=== PATIENT | male | born 1965 | race Caucasian/White ===

== ENCOUNTER → 2016-07-19 | Outpatient (CLI) | payer MEDICAID ==
[2016-07-19 10:33] LABS: MEAN CORPUSCULAR HEMOGLOBIN 30.1 pg (27.0-33.0); RED CELL DISTRIBUTION WIDTH 14.3 % (11.5-14.5); WHITE BLOOD COUNT 7.3 K/mm3 (4.0-10.0)
[2016-07-19 11:08] LABS: CORTISOL AM 7.3 UG/DL (4.3-22.4)
[2016-07-19 11:11] LABS: ALBUMIN 4.3 GM/DL (3.2-5.2); ALBUMIN/GLOBULIN RATIO 1.59 (1.00-1.93); BILIRUBIN,TOTAL 0.3 MG/DL (0.2-1.0); CALCIUM LEVEL 9.2 MG/DL (8.5-10.1); CREATININE FOR GFR 1.58 MG/DL (0.70-1.30); GLOMERULAR FILTRATION RATE 49.5 (>56); POTASSIUM SERUM 4.5 MEQ/L (3.5-5.1)
== END ==
LOC: M LAB 09:35
PROVIDERS: ATTEND Nurse Practitioner Family
DX: R61 Generalized hyperhidrosis (principal)

== ENCOUNTER → 2017-03-15 | Outpatient (REF) | payer MEDICAID, OTHER ==
[2017-03-15 19:53] LABS: ALBUMIN 4.7 GM/DL (3.2-5.2); ALBUMIN/GLOBULIN RATIO 1.52 (1.00-1.93); BILIRUBIN,TOTAL 0.2 MG/DL (0.2-1.0); CALCIUM LEVEL 9.3 MG/DL (8.5-10.1); CREATININE FOR GFR 1.93 MG/DL (0.70-1.30); GLOMERULAR FILTRATION RATE 39.1 (>56); POTASSIUM SERUM 3.9 MEQ/L (3.5-5.1); TOTAL PROTEIN 7.8 GM/DL (6.4-8.2)
[2017-03-15 20:17] LABS: MEAN CORPUSCULAR HEMOGLOBIN 31.1 pg (27.0-33.0); MEAN CORPUSCULAR HGB CONC 32.7 g/dl (32.0-36.5); RED CELL DISTRIBUTION WIDTH 12.9 % (11.5-14.5); WHITE BLOOD COUNT 8.1 K/mm3 (4.0-10.0)
== END ==
LOC: M LAB REF 13:10
PROVIDERS: ATTEND Nurse Practitioner Family
DX: E78.5 Hyperlipidemia, unspecified (principal); E55.9 Vitamin D deficiency, unspecified; J44.9 Chronic obstructive pulmonary disease, unspecified; Z12.5 Encounter for screening for malignant neoplasm of prostate; N28.9 Disorder of kidney and ureter, unspecified; F32.9 Major depressive disorder, single episode, unspecified

== ENCOUNTER → 2017-07-10 | Outpatient (REF) | payer OTHER, MEDICAID ==
[2017-07-10 13:33] LABS: BASO # 0.1 10^3/uL (0.0-0.2); BASO % 0.8 % (0.0-1.0); EOS # 0.2 10^3/uL (0.0-0.50); EOS % 2.9 % (0.0-3.0); HEMATOCRIT 37.2 % (42.0-52.0); IMMATURE GRANULOCYTE % 0.3 % (0-0); LYMPH # 2.6 10^3/uL (1.5-4.5); LYMPH % 35.2 % (24.0-44.0); MEAN CORPUSCULAR HEMOGLOBIN 29.8 pg (27.0-33.0); MEAN CORPUSCULAR HGB CONC 32.3 g/dl (32.0-36.5); MEAN CORPUSCULAR VOLUME 92.3 fl (80.0-96.0); MONO # 0.7 10^3/uL (0.0-0.8); MONO % 8.7 % (0.0-5.0); NEUTROPHILS # 3.9 10^3/uL (1.8-7.7); NEUTROPHILS % 52.1 % (36.0-66.0); PLATELET COUNT, AUTOMATED 331 10^3/uL (150-450); RED BLOOD COUNT 4.03 10^6/uL (4.30-6.10); RED CELL DISTRIBUTION WIDTH 12.9 % (11.5-14.5); WHITE BLOOD COUNT 7.5 10^3/uL (4.0-10.0)
[2017-07-10 13:35] LABS: ALBUMIN 4.6 GM/DL (3.2-5.2); ALBUMIN/GLOBULIN RATIO 1.44 (1.00-1.93); ALKALINE PHOSPHATASE 93 U/L (45-117); ALT/SGPT 20 U/L (12-78); ANION GAP 6 MEQ/L (8-16); AST/SGOT 17 U/L (7-37); BILIRUBIN,TOTAL 0.2 MG/DL (0.2-1.0); BLOOD UREA NITROGEN 32 MG/DL (7-18); CARBON DIOXIDE LEVEL 28 MEQ/L (21-32); CHLORIDE LEVEL 107 MEQ/L (98-107); CHOLESTEROL LEVEL 159 MG/DL (<200); CHOLESTEROL RISK RATIO 3.785 (<5); CREATININE FOR GFR 1.55 MG/DL (0.70-1.30); GLOMERULAR FILTRATION RATE 50.4 (>56); GLUCOSE, FASTING 118 MG/DL (70-105); HDL CHOLESTEROL 42 MG/DL (>40); IRON (FE) 96 UG/DL (65-175); LDL CHOLESTEROL 85.2 MG/DL (<100); NON-HDL-C 117 MG/DL; POTASSIUM SERUM 4.2 MEQ/L (3.5-5.1); SODIUM LEVEL 141 MEQ/L (136-145); TOTAL PROTEIN 7.8 GM/DL (6.4-8.2); TRIGLYCERIDES LEVEL 159 MG/DL (<150)
[2017-07-10 15:03] LABS: ESTIMATED AVERAGE GLUCOSE 126 MG/DL (60-110)
== END ==
LOC: M LAB REF 12:18
DX: I10 Essential (primary) hypertension (principal)
CPT/HCPCS: 83540

== ENCOUNTER 2018-03-26 16:38 | Emergency (ER) | payer OTHER, MEDICAID | END 2018-03-26 19:02 | disposition home or self-care (01) | LOC: M ED 16:38 | DX: M71.21 Synovial cyst of popliteal space [Baker], right knee (principal); I10 Essential (primary) hypertension; G89.29 Other chronic pain; M54.9 Dorsalgia, unspecified; E78.00 Pure hypercholesterolemia, unspecified; K21.9 Gastro-esophageal reflux disease without esophagitis; F41.9 Anxiety disorder, unspecified; F19.10 Other psychoactive substance abuse, uncomplicated; Z79.82 Long term (current) use of aspirin; Z79.899 Other long term (current) drug therapy | CPT/HCPCS: 93971 ==

== ENCOUNTER → 2018-05-05 | Outpatient (CLI) | payer SELFPAY, OTHER ==
[2018-05-05 15:01] LABS: HEMATOCRIT 36.1 % (42.0-52.0); HEMOGLOBIN 12.2 g/dl (13.5-17.5); MEAN CORPUSCULAR HEMOGLOBIN 31.3 pg (27.0-33.0); MEAN CORPUSCULAR HGB CONC 33.8 g/dl (32.0-36.5); MEAN CORPUSCULAR VOLUME 92.6 fl (80.0-96.0); PLATELET COUNT, AUTOMATED 310 10^3/uL (150-450); RED CELL DISTRIBUTION WIDTH 13.2 % (11.5-14.5); WHITE BLOOD COUNT 8.4 10^3/uL (4.0-10.0)
[2018-05-05 15:29] LABS: ALBUMIN 3.9 GM/DL (3.2-5.2); ALBUMIN/GLOBULIN RATIO 1.18 (1.00-1.93); ALKALINE PHOSPHATASE 124 U/L (45-117); ALT/SGPT 32 U/L (12-78); ANION GAP 3 MEQ/L (8-16); AST/SGOT 19 U/L (7-37); BILIRUBIN,TOTAL 0.2 MG/DL (0.2-1.0); BLOOD UREA NITROGEN 25 MG/DL (7-18); CALCIUM LEVEL 8.9 MG/DL (8.5-10.1); CARBON DIOXIDE LEVEL 36 MEQ/L (21-32); CHLORIDE LEVEL 104 MEQ/L (98-107); CREATININE FOR GFR 1.18 MG/DL (0.70-1.30); GLOMERULAR FILTRATION RATE > 60.0 (>56); GLUCOSE, FASTING 129 MG/DL (70-100); POTASSIUM SERUM 3.8 MEQ/L (3.5-5.1); SODIUM LEVEL 143 MEQ/L (136-145); TOTAL PROTEIN 7.2 GM/DL (6.4-8.2)
[2018-05-05 17:02] LABS: CHLAMYDIA DNA AMPLIFICATION NEGATIVE (NEGATIVE); GC DNA AMPLIFICATION NEGATIVE (NEGATIVE)
[2018-05-07 10:53] LABS: HEPATITIS B SURFACE ANTIGEN NEGATIVE (NEGATIVE)
[2018-05-07 11:22] LABS: HIV 1&2 SCREEN CENTAUR NEGATIVE (NEGATIVE)
== END ==
LOC: M LAB 14:28
DX: F11.21 Opioid dependence, in remission (principal); R94.31 Abnormal electrocardiogram [ECG] [EKG]
CPT/HCPCS: 93005

== ENCOUNTER 2018-06-20 10:58 | Emergency (ER) | payer MEDICAID, OTHER ==
[~2018-06-20] VITALS: Ht 177.8 cm; Wt 97.7 kg
[~2018-06-20 10:58] MED LIST: AMLO10TA4; ATOR80TA59; DULO1CAP2; DULO1CAP3; IBUP-1022 PO; METH10CO PO; OMEP20CA3; SM A1TAB
[2018-06-20 11:24] LABS: BASO # 0.1 10^3/uL (0.0-0.2); BASO % 0.5 % (0.0-1.0); EOS # 0.3 10^3/uL (0.0-0.50); EOS % 3.4 % (0.0-3.0); HEMATOCRIT 37.4 % (42.0-52.0); HEMOGLOBIN 12.4 g/dl (13.5-17.5); LYMPH # 2.4 10^3/uL (1.5-4.5); LYMPH % 25.5 % (24.0-44.0); MEAN CORPUSCULAR HEMOGLOBIN 30.7 pg (27.0-33.0); MEAN CORPUSCULAR HGB CONC 33.2 g/dl (32.0-36.5); MEAN CORPUSCULAR VOLUME 92.6 fl (80.0-96.0); MONO # 0.9 10^3/uL (0.0-0.8); MONO % 9.1 % (0.0-5.0); NEUTROPHILS # 5.8 10^3/uL (1.8-7.7); NEUTROPHILS % 61.1 % (36.0-66.0); PLATELET COUNT, AUTOMATED 305 10^3/uL (150-450); RED BLOOD COUNT 4.04 10^6/uL (4.30-6.10); WHITE BLOOD COUNT 9.6 10^3/uL (4.0-10.0)
[2018-06-20 12:06] LABS: BLOOD UREA NITROGEN 20 MG/DL (7-18); CALCIUM LEVEL 8.6 MG/DL (8.5-10.1); CARBON DIOXIDE LEVEL 30 MEQ/L (21-32); CHLORIDE LEVEL 103 MEQ/L (98-107); CREATININE FOR GFR 1.12 MG/DL (0.70-1.30); GLOMERULAR FILTRATION RATE > 60.0 (>56); GLUCOSE, FASTING 170 MG/DL (70-100); POTASSIUM SERUM 3.8 MEQ/L (3.5-5.1); SODIUM LEVEL 140 MEQ/L (136-145)
[2018-06-20] MEDS ORDERED: ISOVUE-370 76% 100ML VIAL (Q9967) As Ordered ONE (12:17)
--- NOTE | 2018-06-20 13:42 | REP ---
CT NECK WITH CONTRAST: HISTORY: Right submandibular swelling. CONTRAST: Isovue 370, 75 mL. The naso-, jeb-, and hypopharynx, larynx and subglottic trachea are normal in appearance. There is mild enlargement of the right submandibular gland. There is mild homogeneous enhancement with contrast. Increased density is present in the surrounding subcutaneous tissue. There is thickening of the right platysma muscle. These findings are consistent with sialoadenitis. The parotid , left submandibular and thyroid glands are normal in size and density. An enlarged lymph node 1.3 cm in width is present in the right internal jugular chain at the level of the jeb- and hypopharynx. Small lymph nodes less than 1 cm in size are present in the left internal jugular chain, posterior triangles, submandibular and submental areas. Minimal degenerative change is present in the spine. The lung apices are clear. Minimal mucosal thickening is present in the ethmoid and right maxillary sinuses. IMPRESSION: The above findings are consistent with right submandibular sialoadenitis. Electronically Signed by Vic Sewell MD 06/20/2018 01:53 P
[2018-06-20] MEDS ORDERED: IBUP-1022 PO (13:57)
[2018-06-20] MEDS ORDERED: PENI500T PO (13:57)
[2018-06-20 14:02] VITALS: BP 146/76
== END 2018-06-20 14:05 | disposition home or self-care (01) ==
LOC: M ED 10:58
DX: K04.7 Periapical abscess without sinus (principal); K11.20 Sialoadenitis, unspecified; K11.8 Other diseases of salivary glands; I10 Essential (primary) hypertension; F19.10 Other psychoactive substance abuse, uncomplicated; Z72.0 Tobacco use; Z79.82 Long term (current) use of aspirin; Z79.899 Other long term (current) drug therapy
CPT/HCPCS: 70491; 80048; 85025; 99284; Q9967

== ENCOUNTER → 2018-07-24 | Outpatient (REF) | payer OTHER ==
[~2018-07-24] MED LIST changes: -AMLO10TA4; +AMLO10TA5; +PENI500T PO
[2018-07-24 17:02] LABS: BASO # 0.1 10^3/uL (0.0-0.2); BASO % 0.6 % (0.0-1.0); EOS # 0.3 10^3/uL (0.0-0.50); EOS % 3.7 % (0.0-3.0); HEMATOCRIT 36.5 % (42.0-52.0); HEMOGLOBIN 12.5 g/dl (13.5-17.5); LYMPH # 3.1 10^3/uL (1.5-4.5); LYMPH % 37.6 % (24.0-44.0); MEAN CORPUSCULAR HEMOGLOBIN 30.6 pg (27.0-33.0); MEAN CORPUSCULAR HGB CONC 34.2 g/dl (32.0-36.5); MEAN CORPUSCULAR VOLUME 89.5 fl (80.0-96.0); MONO # 0.6 10^3/uL (0.0-0.8); MONO % 7.5 % (0.0-5.0); NEUTROPHILS # 4.1 10^3/uL (1.8-7.7); NEUTROPHILS % 50.5 % (36.0-66.0); PLATELET COUNT, AUTOMATED 306 10^3/uL (150-450); RED BLOOD COUNT 4.08 10^6/uL (4.30-6.10); WHITE BLOOD COUNT 8.2 10^3/uL (4.0-10.0)
[2018-07-24 17:13] LABS: ALBUMIN 3.8 GM/DL (3.2-5.2); BILIRUBIN,TOTAL 0.2 MG/DL (0.2-1.0); CALCIUM LEVEL 8.7 MG/DL (8.5-10.1); CREATININE FOR GFR 1.41 MG/DL (0.70-1.30); POTASSIUM SERUM 3.7 MEQ/L (3.5-5.1); THYROID STIMULATING HORMONE 1.14 uIU/ML (0.358-3.740); TOTAL PROTEIN 7.5 GM/DL (6.4-8.2)
== END ==
LOC: M LAB REF 16:25
PROVIDERS: ATTEND Nurse Practitioner Adult Health
DX: N28.9 Disorder of kidney and ureter, unspecified (principal); E55.9 Vitamin D deficiency, unspecified; I10 Essential (primary) hypertension; D64.9 Anemia, unspecified

== ENCOUNTER 2018-09-04 01:24 | Emergency (ER) | payer OTHER ==
[~2018-09-04] VITALS: Ht 180.3 cm; Wt 95.5 kg
[2018-09-04] MEDS ORDERED: MORPHINE 4 MG/ML 1ML VIAL/SYRINGE (J2270) IV PRN (02:30)
[2018-09-04] MEDS ORDERED: KETOROLAC 30 MG/ML VIAL (J1885) IV ONE (02:30)
[2018-09-04] MEDS ORDERED: ONDANSETRON 4MG/2ML VIAL (J2405) IV ONE (02:30)
[2018-09-04] MEDS ORDERED: IBUP80TA PO (04:03)
[2018-09-04 04:05] VITALS: BP 166/88
--- NOTE | 2018-09-04 06:57 | REP ---
Clinical: Trauma/injury. Technique: AP, lateral, and bilateral oblique views of the right knee. Findings: Early advanced tricompartmental osteoarthritic degenerative changes are appreciated. There is no evidence for acute fracture or dislocation. No definite effusion. Impression: Tricompartmental osteoarthritic degenerative changes. No acute fracture or dislocation appreciated. Electronically Signed by Phoenix Marrero MD 09/04/2018 06:49 A
== END 2018-09-04 04:17 | disposition home or self-care (01) ==
LOC: M ED 01:24
DX: M79.661 Pain in right lower leg (principal); W19.XXXA Unspecified fall, initial encounter; Y92.099 Unspecified place in other non-institutional residence as the place of occurrence of the external cause; Y93.9 Activity, unspecified; Y99.9 Unspecified external cause status; M17.11 Unilateral primary osteoarthritis, right knee; F19.10 Other psychoactive substance abuse, uncomplicated; Z79.82 Long term (current) use of aspirin; Z79.899 Other long term (current) drug therapy
CPT/HCPCS: 73564; 96374; 96375; 99284; J1885; J2270; J2405

== ENCOUNTER → 2019-01-08 | Outpatient (REF) | payer OTHER ==
[~2019-01-08] MED LIST changes: +ASPI-164; -DULO1CAP2; -DULO1CAP3; +DULO1CAP5; +DULO1CAP6; +IBUP80TA PO; -OMEP20CA3; +OMEP20CA4; -SM A1TAB
[2019-01-08 18:47] LABS: BASO # 0.1 10^3/uL (0.0-0.2); BASO % 0.7 % (0.0-1.0); EOS # 0.1 10^3/uL (0.0-0.50); HEMATOCRIT 31.8 % (42.0-52.0); HEMOGLOBIN 10.6 g/dl (13.5-17.5); LYMPH # 3.1 10^3/uL (1.5-4.5); LYMPH % 28.2 % (24.0-44.0); MEAN CORPUSCULAR HEMOGLOBIN 30.7 pg (27.0-33.0); MEAN CORPUSCULAR HGB CONC 33.3 g/dl (32.0-36.5); MEAN CORPUSCULAR VOLUME 92.2 fl (80.0-96.0); MONO # 0.8 10^3/uL (0.0-0.8); MONO % 7.4 % (0.0-5.0); NEUTROPHILS # 6.9 10^3/uL (1.8-7.7); NEUTROPHILS % 62.3 % (36.0-66.0); PLATELET COUNT, AUTOMATED 363 10^3/uL (150-450); RED BLOOD COUNT 3.45 10^6/uL (4.30-6.10); WHITE BLOOD COUNT 11.1 10^3/uL (4.0-10.0)
[2019-01-08 18:48] LABS: ALBUMIN 4.1 GM/DL (3.2-5.2); BILIRUBIN,TOTAL 0.2 MG/DL (0.2-1.0); CALCIUM LEVEL 8.8 MG/DL (8.5-10.1); CREATININE FOR GFR 1.56 MG/DL (0.70-1.30); GLOMERULAR FILTRATION RATE 49.6 (>56); POTASSIUM SERUM 3.6 MEQ/L (3.5-5.1); TOTAL PROTEIN 7.4 GM/DL (6.4-8.2)
[2019-01-08 19:33] LABS: HEMOGLOBIN A1c 6.2 %
== END ==
LOC: M LAB REF 17:02
PROVIDERS: ATTEND Nurse Practitioner Adult Health
DX: N28.9 Disorder of kidney and ureter, unspecified (principal); D64.9 Anemia, unspecified; I10 Essential (primary) hypertension; K76.9 Liver disease, unspecified

== ENCOUNTER 2019-04-13 07:32 | Emergency (ER) | payer OTHER ==
[~2019-04-13] VITALS: Ht 180.3 cm; Wt 81.8 kg
[2019-04-13] MEDS ORDERED: ASPI81TA26 (07:51)
[2019-04-13] MEDS ORDERED: VENL150C43 (07:51)
[2019-04-13] MEDS ORDERED: SILD50TA8 (07:51)
[2019-04-13] MEDS ORDERED: BUSP15TA47 (07:51)
[2019-04-13] MEDS ORDERED: NAPR-885 PO (08:51)
[2019-04-13 08:58] VITALS: BP 161/87
--- NOTE | 2019-04-13 09:02 | REP ---
REASON: Persistent pain after trauma 2 months ago. There is a fracture of the anterior 7th rib. There is associated callous formation consistent with healing. The accompany frontal view of the chest is normal. IMPRESSION: Left anterior 7th rib fracture. Electronically Signed by Jacques Palmer DO 04/13/2019 09:07 A
== END 2019-04-13 09:03 | disposition home or self-care (01) ==
LOC: M ED 07:32
DX: S22.32XA Fracture of one rib, left side, initial encounter for closed fracture (principal); Y04.0XXA Assault by unarmed brawl or fight, initial encounter; Y92.9 Unspecified place or not applicable; I10 Essential (primary) hypertension; F17.210 Nicotine dependence, cigarettes, uncomplicated; Z79.891 Long term (current) use of opiate analgesic; Z79.82 Long term (current) use of aspirin; Z79.899 Other long term (current) drug therapy

== ENCOUNTER → 2019-06-05 | Outpatient (CLI) | payer OTHER, SELFPAY ==
[~2019-06-05] MED LIST changes: +ASPI81TA26; +BUSP15TA47; +NAPR-885 PO; +SILD50TA8; +VENL150C43
[2019-06-05 11:27] LABS: BASO # 0.1 10^3/uL (0.0-0.2); EOS # 0.4 10^3/uL (0.0-0.5); EOS % 3.4 % (0.0-3.0); HEMATOCRIT 38.7 % (42.0-52.0); HEMOGLOBIN 12.4 g/dl (13.5-17.5); LYMPH # 3.2 10^3/uL (1.5-5.0); LYMPH % 28.5 % (24.0-44.0); MEAN CORPUSCULAR HEMOGLOBIN 30.2 pg (27.0-33.0); MEAN CORPUSCULAR VOLUME 94.2 fl (80.0-96.0); MONO # 0.9 10^3/uL (0.0-0.8); MONO % 8.3 % (0.0-5.0); NEUTROPHILS # 6.6 10^3/uL (1.5-8.5); NEUTROPHILS % 58.4 % (36.0-66.0); PLATELET COUNT, AUTOMATED 334 10^3/uL (150-450); RED BLOOD COUNT 4.11 10^6/uL (4.30-6.10); WHITE BLOOD COUNT 11.4 10^3/uL (4.0-10.0)
[2019-06-05 11:49] LABS: ALBUMIN 3.9 GM/DL (3.2-5.2); BILIRUBIN,TOTAL 0.2 MG/DL (0.2-1.0); CREATININE FOR GFR 1.38 MG/DL (0.70-1.30); GLOMERULAR FILTRATION RATE 57.2 (>56); POTASSIUM SERUM 4.3 MEQ/L (3.5-5.1); TOTAL PROTEIN 7.2 GM/DL (6.4-8.2)
[2019-06-05 11:57] LABS: FOLATE 4.2 NG/ML
== END ==
LOC: M LAB 09:15
PROVIDERS: ATTEND Nurse Practitioner Adult Health
DX: D64.9 Anemia, unspecified (principal)

== ENCOUNTER → 2019-06-05 | Outpatient (CLI) | payer OTHER, SELFPAY ==
[2019-06-05 11:22] LABS: HEMATOCRIT 38.4 % (42.0-52.0); HEMOGLOBIN 12.5 g/dl (13.5-17.5); MEAN CORPUSCULAR HEMOGLOBIN 30.6 pg (27.0-33.0); MEAN CORPUSCULAR HGB CONC 32.6 g/dl (32.0-36.5); MEAN CORPUSCULAR VOLUME 93.9 fl (80.0-96.0); PLATELET COUNT, AUTOMATED 328 10^3/uL (150-450); RED BLOOD COUNT 4.09 10^6/uL (4.30-6.10); WHITE BLOOD COUNT 11.5 10^3/uL (4.0-10.0)
[2019-06-05 12:17] LABS: ALBUMIN 4.1 GM/DL (3.2-5.2); ALT/SGPT 26 U/L (12-78); BILIRUBIN,TOTAL 0.2 MG/DL (0.2-1.0); BLOOD UREA NITROGEN 31 MG/DL (7-18); CARBON DIOXIDE LEVEL 31 MEQ/L (21-32); CHLORIDE LEVEL 104 MEQ/L (98-107); CREATININE FOR GFR 1.42 MG/DL (0.70-1.30); GLOMERULAR FILTRATION RATE 55.3 (>56); GLUCOSE, FASTING 85 MG/DL (70-100); POTASSIUM SERUM 4.4 MEQ/L (3.5-5.1); SODIUM LEVEL 139 MEQ/L (136-145); TOTAL PROTEIN 7.3 GM/DL (6.4-8.2)
[2019-06-05 12:38] LABS: HEPATITIS B SURFACE ANTIGEN NEGATIVE (NEGATIVE)
[2019-06-05 12:39] LABS: CHLAMYDIA DNA AMPLIFICATION NEGATIVE (NEGATIVE); GC DNA AMPLIFICATION NEGATIVE (NEGATIVE)
[2019-06-05 13:06] LABS: HEPATITIS C VIRUS ABY INDEX 0.1 INDEX (<0.8); HIV 1&2 SCREEN CENTAUR NEGATIVE (NEGATIVE)
--- NOTE | 2019-06-06 07:59 | ECGEPIP ---
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
== END ==
LOC: M LAB 09:09
PROVIDERS: ATTEND Family Medicine
DX: F11.20 Opioid dependence, uncomplicated (principal)

== ENCOUNTER 2019-08-08 17:14 | Emergency (ER) | payer MEDICAID, OTHER ==
[~2019-08-08] VITALS: Ht 180.3 cm; Wt 84.3 kg
[~2019-08-08 17:14] MED LIST changes: +OMEP1CAP73; -OMEP20CA4
[2019-08-08 18:11] LABS: INFLUENZA A AMPLIFICATION POSITIVE (NEGATIVE); INFLUENZA B AMPLIFICATION NEGATIVE (NEGATIVE)
--- NOTE | 2019-08-08 18:11 | REP ---
PA and lateral chest: Comparisons are 05/30/2069 and 04/13/2019. The study is somewhat underpenetrated. Sign taking this into consideration galarza are clear. Cardiac size is normal. The zoran, mediastinum, skeletal structures are unremarkable. There is no change from the prior study. Impression: Under penetrated study. No interval change. Electronically Signed by Ovidio Waite MD 08/08/2019 06:03 P
[2019-08-08] MEDS ORDERED: ACETAMINOPHEN 325 MG TAB PO ONE (18:30)
[2019-08-08] MEDS ORDERED: IBUPROFEN 600 MG TAB PO ONE (18:30)
[2019-08-08] MEDS ORDERED: IPRATROPIUM 0.5MG/ALBUTEROL 2.5MG INH SOL UD 3ML (DUONEB)(J7620) NEB ONE (19:30)
[2019-08-08 21:09] VITALS: BP 128/59
== END 2019-08-08 21:44 | disposition home or self-care (01) ==
LOC: M ED 17:14
DX: J09.X9 Influenza due to identified novel influenza A virus with other manifestations (principal); K21.9 Gastro-esophageal reflux disease without esophagitis; F17.210 Nicotine dependence, cigarettes, uncomplicated; Z79.899 Other long term (current) drug therapy; Z79.82 Long term (current) use of aspirin

== ENCOUNTER 2019-08-14 20:23 | Inpatient (IN) | payer OTHER ==
[~2019-08-14] VITALS: Ht 180.3 cm; Wt 84.1 kg
[2019-08-14] MEDS ORDERED: GI COCKTAIL 50ML BTL(HYOSCYAMINE/MAALOX/LIDOCAINE VISCOUS)(1:3:1) PO ONE (22:45)
[2019-08-14] MEDS ORDERED: NITROGLYCERIN 0.4 MG SUBL TABLET SL PRN (23:00)
[2019-08-14] MEDS ORDERED: ASPIRIN 81 MG CHEW TABLET PO ONE (23:00)
[2019-08-14 23:21] LABS: BASO % 0.3 % (0.0-1.0); EOS # 0.1 10^3/uL (0.0-0.5); EOS % 0.4 % (0.0-3.0); HEMATOCRIT 34.7 % (42.0-52.0); HEMOGLOBIN 11.4 g/dl (13.5-17.5); LYMPH # 2.3 10^3/uL (1.5-5.0); LYMPH % 16.1 % (24.0-44.0); MEAN CORPUSCULAR HEMOGLOBIN 30.1 pg (27.0-33.0); MEAN CORPUSCULAR HGB CONC 32.9 g/dl (32.0-36.5); MEAN CORPUSCULAR VOLUME 91.6 fl (80.0-96.0); MONO % 7.2 % (0.0-5.0); NEUTROPHILS # 10.6 10^3/uL (1.5-8.5); NEUTROPHILS % 75.1 % (36.0-66.0); PLATELET COUNT, AUTOMATED 488 10^3/uL (150-450); RED BLOOD COUNT 3.79 10^6/uL (4.30-6.10); WHITE BLOOD COUNT 14.1 10^3/uL (4.0-10.0)
[2019-08-14 23:48] LABS: PARTIAL THROMBOPLASTIN TIME 31.1 SECONDS (25.0-38.4)
[2019-08-14 23:52] LABS: INR 1.18; PROTHROMBIN TIME 14.7 SECONDS (11.8-14.0)
[2019-08-14 23:56] LABS: ALBUMIN 3.1 GM/DL (3.2-5.2); ALT/SGPT 33 U/L (12-78); BILIRUBIN,DIRECT 0.2 MG/DL (0.0-0.2); BILIRUBIN,TOTAL 0.3 MG/DL (0.2-1.0); BLOOD UREA NITROGEN 26 MG/DL (7-18); CALCIUM LEVEL 8.5 MG/DL (8.5-10.1); CARBON DIOXIDE LEVEL 26 MEQ/L (21-32); CHLORIDE LEVEL 102 MEQ/L (98-107); CK-MB VALUE MASS 1.8 NG/ML (<3.6); CPK CREATINE PHOSPHOKINASE 56 U/L (39-308); CREATININE FOR GFR 1.44 MG/DL (0.70-1.30); FREE T4 1.12 NG/DL (0.76-1.46); GLOMERULAR FILTRATION RATE 54.4 (>56); GLUCOSE, FASTING 95 MG/DL (70-100); LIPASE 94 U/L (73-393); MB/CK RELATIVE INDEX 3.21 (< OR =4); NT-PRO BNP 1617 PG/ML (<125); SODIUM LEVEL 138 MEQ/L (136-145); THYROID STIMULATING HORMONE 0.503 uIU/ML (0.358-3.740); TOTAL PROTEIN 7.1 GM/DL (6.4-8.2); TROPONIN I < 0.02 NG/ML (< 0.10)
[2019-08-15] MEDS ORDERED: ISOVUE-370 76% 100ML VIAL (Q9967) As Ordered ONE
[2019-08-15] MEDS ORDERED: POTASSIUM CHLORIDE 10 MEQ SR TABLET PO ONE (00:15)
[2019-08-15] MEDS ORDERED: AMLO10TA5 PO (00:25)
[2019-08-15] MEDS ORDERED: ASPI-161 PO (00:25)
[2019-08-15] MEDS ORDERED: VITMTA PO (00:25)
[2019-08-15] MEDS ORDERED: BUSP15TA47 PO (00:25)
[2019-08-15] MEDS ORDERED: SILD50TA PO (00:25)
[2019-08-15] MEDS ORDERED: VENL150T24 PO (00:25)
[2019-08-15] MEDS ORDERED: ATOR80TA59 PO (00:25)
[2019-08-15] MEDS ORDERED: METH10CO PO (00:27)
--- NOTE | 2019-08-15 00:50 | REPVR ---
PROCEDURE INFORMATION: Exam: CT Angiography Chest With Contrast Exam date and time: 08/14/2019 10:43 PM Age: 53 years old Clinical indication: Shortness of breath; Chest pain; Type not specified; Patient HX: Flu like symptoms. . . +flu; Additional info: Chest pain, SOB TECHNIQUE: Imaging protocol: Computed tomographic angiography of the chest with intravenous contrast. 3D rendering: MIP and/or 3D reconstructed images were created by the technologist. Radiation optimization: All CT scans at this facility use at least one of these dose optimization techniques: automated exposure control; mA and/or kV adjustment per patient size (includes targeted exams where dose is matched to clinical indication); or iterative reconstruction. Contrast material: ISO; Contrast volume: 75 ml; Contrast route: AC; COMPARISON: CR Chest, 2 view PA, Lat 08/14/2019 8:43 PM FINDINGS: Limitations: Examination is limited by motion artifact. Pulmonary arteries: Normal. No pulmonary emboli. Aorta: Unremarkable. No aortic aneurysm. No aortic dissection. Trachea: Unremarkable. Lungs: Diffuse bronchial wall thickening and mucus plugging in the lower lobes bilaterally. Mild patchy ground-glass opacities bilaterally. Diffuse centrilobular nodules bilaterally, predominantly in the lower lobes bilaterally. Pleural space: Unremarkable. No pneumothorax. No pleural effusion. Heart: Unremarkable. No cardiomegaly. No pericardial effusion. Lymph nodes: Unremarkable. No enlarged lymph nodes. Bones/joints: Chronic fracture of the left 6th and 7th ribs anterolaterally. Mild atherosclerotic disease. Soft tissues: Unremarkable. IMPRESSION: 1. Negative for pulmonary embolism. 2. Mild patchy ground-glass opacities bilaterally. Diffuse centrilobular nodules bilaterally. Consistent with pneumonia. 3. Diffuse bronchial wall thickening and mucus plugging in the lower lobes bilaterally. Consistent with bronchitis. COMMENT: Note that centrilobular, tree-in-bud, and typical perifissural nodules are considered very low likelihood of cancer and follow up for cancer is not necessary for these nodules. (Lung-RADS, ACR, Version 1.1, 2019) Electronically signed by: Viv Wolff On 08/15/2019 00:49:36 AM
[2019-08-15] MEDS ORDERED: cefTRIAXone SOD 1 GM in D5W MINI-BAG PLUS 50 ML IV ONE (01:15)
[2019-08-15] MEDS ORDERED: AZITHROMYCIN INJ 500 MG, VIAL MATE ADAPTER 1 EACH in D5W 250 ML IV ONE (01:15)
[2019-08-15] MEDS ORDERED: busPIRone 5 MG TAB PO PRN (01:45)
--- NOTE | 2019-08-15 01:59 | HPEPDOC ---
General Date of Admission 08/15/19 Date of Service: Aug 15, 2019 Chief Complaint The patient is a 53-year-old male admitted with a reason for visit of Flu/Cold Symptoms. Source: Patient Exam Limitations: No limitations Timing/Duration: Day(s) Severity: Moderate Associated Symptoms: Chest Pain, Shortness of breath History of Present Illness Patient is 53 years old male with past medical history of hypertension, hyperlipidemia, anxiety, depression, drug abuse currently on methadone therapy, presented to the hospital with weakness, increased shortness of breath and chest pain. Patient stated that 6 days ago he was tested positive for influenza A infection. He has been having muscle ache, generalized weakness and cough. Also patient noticed chest pain 7 out of 10, intermittent, substernal. In ER patient was found to have leukocytosis of 14.1 , creatinine 1.4, BNP 1600, troponin was done and it was negative. CT chest showed Mild patchy ground-glass opacities bilaterally. Diffuse centrilobular nodules bilaterally. Consistent with pneumonia. Home Medications Scheduled Amlodipine Besylate (Amlodipine Besylate) 10 Mg Tablet, 10 MG PO DAILY, (Reported) Aspirin (Aspirin EC) 81 Mg Tablet.dr, 81 MG PO DAILY, (Reported) Atorvastatin Calcium (Atorvastatin Calcium) 80 Mg Tablet, 80 MG PO DAILY, (Reported) Methadone HCl (Methadone HCl) 10 Mg/1 Ml Oral.conc, 165 MG PO DAILY, (Reported) Multivitamins (Thera M Plus Tablet) 1 Each Tablet, 1 TAB PO DAILY, (Reported) Venlafaxine HCl (Venlafaxine HCl ER) 150 Mg Tab.er.24, 150 MG PO DAILY, (Reported) Scheduled PRN Buspirone HCl (Buspirone HCl) 15 Mg Tablet, 15 MG PO BID PRN for ANXIETY, (Reported) Sildenafil Citrate (Viagra) 50 Mg Tablet, 50 MG PO DAILY PRN for ERECTILE DYSFUNCTION, (Reported) Allergies Coded Allergies: No Known Allergies (Verified , 08/14/19) Past Medical History Medical History Hyperlipidemia, hypertension, anxiety, depression, drug abuse currently on methadone therapy Family History I personally reviewed family history and found not pertinent Social History * Smoker: current smoker Alcohol: Denies Drugs: denies A-FIB/CHADSVASC A-FIB History Current/History of A-Fib/PAF?: No Current PO Anticoag Therapy: No Review of Systems Constitutional: Reports: Chills, Fever Eyes: Denies: Pain ENT: Reports: Head Aches; Denies: Ear Pain Skin: Denies: Rash, Lesions Pulmonary: Reports: Dyspnea, Cough, Pleuritic Chest Pain Cardiovascular: Reports: Chest Pain; Denies: Palpitations Gastrointestinal: Denies: Nausea, Vomiting Genitourinary: Denies: Dysuria, Frequency Hematologic: Denies: Bruising, Bleeding Excessively Endocrine: Denies: Polydipsia, Polyphagia Musculoskeletal: Denies: Neck Pain, Back Pain Neurological: Denies: Weakness, Numbness Psych: Reports: Mood Normal Physical Examination General Exam: Positive: Alert, Cooperative Eye Exam: Positive: PERRLA ENT Exam: Positive: Atraumatic, Mucous membr. moist/pink Neck Exam: Positive: Supple; Negative: JVD Chest Exam: Positive: Rhonchi, Diminished; Negative: Clear to auscultation Heart Exam: Positive: Rate Normal Telemetry: Positive: No significant arrhythmia Abdomen Exam: Positive: Normal bowel sounds Extremity Exam: Negative: Clubbing, Cyanosis Skin Exam: Positive: Nl turgor and temperature Neuro Exam: Positive: Strength at 5/5 X4 ext, Cranial Nerves 3-12 NL Psych Exam: Positive: Mental status NL Vital Signs Vital Signs Date Time Temp Pulse Resp B/P (MAP) Pulse Ox O2 Delivery O2 Flow Rate FiO2 08/15/19 00:47 73 16 144/82 (102) 98 08/14/19 22:30 Room Air 08/14/19 20:23 98.1 Laboratory Data Labs 24H Laboratory Tests 2 08/14/19 23:08: Immature Granulocyte % (Auto) 0.9, Neutrophils (%) (Auto) 75.1H, Lymphocytes (%) (Auto) 16.1L, Monocytes (%) (Auto) 7.2H, Eosinophils (%) (Auto) 0.4, Basophils (%) (Auto) 0.3, Neutrophils # (Auto) 10.6H, Lymphocytes # (Auto) 2.3, Monocytes # (Auto) 1.0H, Eosinophils # (Auto) 0.1, Basophils # (Auto) 0.0, Nucleated Red Blood Cells % (auto) 0.0, Prothrombin Time 14.7H, Prothromb Time International Ratio 1.18, Activated Partial Thromboplast Time 31.1, Anion Gap 10, Glomerular Filtration Rate 54.4L, Calcium Level 8.5, Total Bilirubin 0.3, Direct Bilirubin 0.2, Aspartate Amino Transf (AST/SGOT) 15, Alanine Aminotransferase (ALT/SGPT) 33, Alkaline Phosphatase 89, Total Creatine Kinase 56, Creatine Kinase MB 1.8, Creatine Kinase MB Relative Index 3.21, Troponin I < 0.02, TM-Cup-L-Type Natriuretic Peptide 1617H, Total Protein 7.1, Albumin 3.1L, Albumin/Globulin Ra leda 0.78L, Lipase 94, Thyroid Stimulating Hormone (TSH) 0.503, Free Thyroxine 1.12 CBC/BMP Laboratory Tests 08/14/19 23:08 Assessment/Plan Patient is 53 years old male with past medical history of hypertension, hyperlipidemia, anxiety, depression, drug abuse currently on methadone therapy, presented to the hospital with weakness, increased shortness of breath and chest pain. Patient stated that 6 days ago he was tested positive for influenza A infection. He has been having muscle ache, generalized weakness and cough. Also patient noticed chest pain 7 out of 10, intermittent, substernal. In ER patient was found to have leukocytosis of 14.1 , creatinine 1.4, BNP 1600, troponin was done and it was negative. CT chest showed bilateral pneumonia Problems (1) Pneumonia Status: Acute Problem Text: Most likely secondary to influenza A with bacterial coinfection CT shows bilateral pneumonia Azithromycin IV, ceftriaxone IV Blood culture, sputum culture (2) Influenza A Status: Acute Problem Text: Tamiflu for 5 days (3) Chest pain Status: Acute Problem Text: Patient developed atypical chest pain. First troponin negative. EKG showed mild ST depression in the anterolateral leads. His pain can be attributed to pleuritis or pericarditis secondary to viral infection Continue to monitor troponin His BNP significantly elevated however patient has never been diagnosed with CHF Echo Patient has multiple risk factors including smoking, hypertension, hyperlipidemia, age. Patient will benefit from stress test in the outpatient settings Plan / VTE VTE Prophylaxis Ordered?: Yes OTTONIEL GEORGES DO Aug 15, 2019 01:59
[2019-08-15] MEDS ORDERED: NITROGLYCERIN 0.4 MG SUBL TABLET SL PRN (02:00)
[2019-08-15] MEDS: NS 1,000 ML IV SCH ×2 (02:12→04:53)
[2019-08-15 03:01] LABS: INFLUENZA A AMPLIFICATION NEGATIVE (NEGATIVE); INFLUENZA B AMPLIFICATION NEGATIVE (NEGATIVE)
[2019-08-15] MEDS: ACETAMINOPHEN TAB 650MG DOSE (2X325MG) PO SCH ×3 (03:42→04:15)
[2019-08-15 04:28] VITALS: BP 151/90
[2019-08-15] MEDS ORDERED: IBUPROFEN 400 MG TAB PO ONE (04:45)
--- NOTE | 2019-08-15 07:50 | REP ---
Clinical: Shortness of breath . Comparison: 08/08/2019 . Technique: PA and lateral. Findings: The mediastinum and cardiac silhouette are normal. The lung todd demonstrate chronic interstitial changes without focal consolidation, effusion, or pneumothorax. The skeletal structures are intact and normal. Impression: 1. No focal consolidation. Electronically Signed by Pohenix Marrero MD 08/15/2019 07:41 A
[2019-08-15] MEDS ORDERED: HEPARIN SOD (PORCINE) 5000 UNITS/ML VIAL (J1644 PER 1000UNITS) SC SCH (09:00)
[2019-08-15] MEDS: ASPIRIN 81 MG ENTERIC TAB PO SCH (09:43)
[2019-08-15] MEDS: MULTIVITAMINS/MINERALS THERAP 1 TAB PO SCH (09:44)
[2019-08-15] MEDS: OSELTAMIVIR PHOSPHATE 75 MG CAP (TAMIFLU) PO SCH ×2 (09:44→20:33)
[2019-08-15] MEDS: ATORVASTATIN 20 MG TAB PO SCH (09:44)
[2019-08-15] MEDS: amLODIPine 10 MG TAB PO SCH (09:48)
[2019-08-15] MEDS ORDERED: ALBUTEROL SULFATE 2.5 MG/0.5 ML INH NEB SOLN INH PRN (10:30)
--- NOTE | 2019-08-15 10:36 | IPN ---
DATE: 08/15/2019 Jose R is seen on [facility] while rounding for the hospitalist service. He was admitted with pneumonia, significant mucous plugging and bronchial inflammation that is post influenza having been diagnoses 6 days ago. He has a history of chronic opiate abuse, now on methadone therapy. He has had a lot of chest wall pain. He had electrolyte disturbances on admission. This consisted of hyponatremia and acute kidney injury but did no have any followup labs ordered for today. PHYSICAL EXAMINATION: Blood pressure 149/89, pulse 59, respiratory rate 22, 97% saturation. He looks anxious but speaks in full sentences. Lungs: Decreased breath sounds, scattered rhonchi and wheezes. Heart: Regular. Abdomen is soft nontender. Chest wall is tender to palpate on the left. No peripheral edema. LABS: None ordered. IMPRESSION: 1. Post-viral pneumonia. He is on Rocephin and azithromycin. Will increase the Rocephin to recommended dose of 2 grams IV daily. Continue the IV azithromycin. Post influenza pneumonia is sometimes due to Staphylococcus. He should have sufficient coverage from the azithromycin but if he clinically does not response, we might need to change antibiotics. We are increasing the dose of his ceftriaxone to 2 grams IV daily. 2. Chest wall pain: Analgesics and heating pad ordered. He is on chronic opiate therapy. I expect he probably has hyperesthesia related to chronic opiates. 3. Chronic kidney disease: Previously stated that he had acute kidney injury. Looking through his records, it looks like he is probably at his baseline creatinine. This appears that it is chronic kidney disease (CKD) III. 4. Hypokalemia: He does not have any potassium in his IV fluids and he does not have followup labs ordered. Will change the IV fluids to contain potassium and will get some stat labs. 5. Hyperlipidemia: Continue current dose of atorvastatin. 6. History of chronic opiate therapy now on methadone replacement. Continue his current regimen.
[2019-08-15] MEDS: ALBUTEROL SULFATE 2.5 MG/0.5 ML INH NEB SOLN INH SCH ×3 (11:13→19:23)
[2019-08-15 11:15] LABS: HEMATOCRIT 32.6 % (42.0-52.0); HEMOGLOBIN 11.1 g/dl (13.5-17.5); MEAN CORPUSCULAR HEMOGLOBIN 30.7 pg (27.0-33.0); MEAN CORPUSCULAR VOLUME 90.3 fl (80.0-96.0); PLATELET COUNT, AUTOMATED 483 10^3/uL (150-450); RED BLOOD COUNT 3.61 10^6/uL (4.30-6.10); WHITE BLOOD COUNT 12.8 10^3/uL (4.0-10.0)
[2019-08-15] MEDS: ONDANSETRON 4MG/2ML VIAL (J2405) IV PRN (11:25)
[2019-08-15] MEDS: KCL 20MEQ IN 0.45NS 1000ML 1,000 ML IV SCH ×2 (11:25→23:30)
[2019-08-15] MEDS: cefTRIAXone SOD 2 GM in D5W MINI-BAG PLUS 50 ML IV SCH (11:25)
[2019-08-15 11:39] LABS: BLOOD UREA NITROGEN 25 MG/DL (7-18); CALCIUM LEVEL 8.4 MG/DL (8.5-10.1); CARBON DIOXIDE LEVEL 26 MEQ/L (21-32); CHLORIDE LEVEL 106 MEQ/L (98-107); CREATININE FOR GFR 1.25 MG/DL (0.70-1.30); GLOMERULAR FILTRATION RATE > 60.0 (>56); GLUCOSE, FASTING 149 MG/DL (70-100); POTASSIUM SERUM 3.2 MEQ/L (3.5-5.1); SODIUM LEVEL 139 MEQ/L (136-145)
[2019-08-15] MEDS: METHADONE 10 MG TAB (S0109) PO SCH (12:34)
[2019-08-15 14:00] VITALS: BP 141/69
--- NOTE | 2019-08-15 19:20 | ECHO ---
DATE OF PROCEDURE: 08/15/2019 AGE: 53 GENDER: Male. HEIGHT: 71 inches. WEIGHT: 185 pounds. BODY SURFACE AREA: 2.04 meters squared INPATIENT, [facility] room 4211 REFERRING PHYSICIAN: Dr. Machado INDICATION: Congestive heart failure (unspecified) MEASUREMENTS 2-D Measurements: RV: 4.6 cm LV: 5.4 cm Septum: 1.2 cm Posterior wall: 1.2 cm Aortic root: 3.7 cm LA: 4.2 cm LVEF: 75% Doppler Measurements: AV: 1.77 m/s RVOT: 1.4 m/s LVOT diameter: 2.1 cm MV - E 102 A 98 E/A ratio 1 Early mitral deceleration time: 257 ms E prime medial: 10 A prime medial: 14.6 E prime lateral: 13 Average, E/E prime ratio: 8.9 PCWP: 12.9 mmHg PV: 1.2 m/s Pulmonary artery acceleration time: 95 ms RVSP: 54-59 mmHg IVC: 2.3 cm COMMENTS: Normal sinus rhythm without intraventricular conduction disturbance. M-mode and two-dimensional echocardiography was performed with pulsed, continuous wave, color flow and tissue Doppler studies. Borderline eccentric left ventricle hypertrophy with hyperkinetic wall motion. Mildly dilated left atrium with currently normal Doppler assessment of LV diastolic function and estimated mean left atrial pressure. Mild to moderately dilated right heart chambers with normal wall motion and Doppler evidence of least moderately severe pulmonary hypertension. Mildly dilated inferior vena cava with reduced respiratory collapse in keeping with central venous pressure 15 - 20 small mmHg. Normal appearing and functioning aortic valve. Normal aortic root and ascending aortic diameters. Normal-appearing mitral valvular apparatus with very mild insufficiency (physiologic). Normal appearing tricuspid valve with moderate mitral insufficiency. No apparent intracardiac mass or pericardial effusion.
[2019-08-15 22:00] VITALS: BP 137/67
[2019-08-16] MEDS: ONDANSETRON 4MG/2ML VIAL (J2405) IV PRN (00:32)
[2019-08-16] MEDS ORDERED: cefTRIAXone SOD 1 GM in D5W MINI-BAG PLUS 50 ML IV SCH (02:00)
[2019-08-16] MEDS: ACETAMINOPHEN 500 MG TAB PO PRN (02:47)
[2019-08-16] MEDS: AZITHROMYCIN INJ 500 MG, VIAL MATE ADAPTER 1 EACH in D5W 250 ML IV SCH (04:09)
--- NOTE | 2019-08-16 04:42 | ECGEPIP ---
[facility] - ED Test Date: 2019-08-14 Pat Name: CHAPO DALE Department: Room: [place] [address] Gender: Male [employer] Agent: yoly : 1965 Requested By: CARLA Pennington Order Number: [id number] Reading MD: Gael French Measurements Intervals [place] Rate: 77 P: 70 ND: 158 QRS: 60 QRSD: 99 T: 71 QT: 430 QTc: 490 Interpretive Statements SINUS RHYTHM Prolonged QTc interval LEFT VENTRICULAR HYPERTROPHY AND ST-T CHANGE ST changes new from tracing done 06-05-19 Electronically Signed on 08-16-2019 4:42:10 EST by Gael French
[2019-08-16 06:00] VITALS: BP 172/83
[2019-08-16] MEDS ORDERED: diphenhydrAMINE 50 MG CAP PO ONE (06:00)
[2019-08-16 06:51] LABS: HEMOGLOBIN 10.3 g/dl (13.5-17.5); MEAN CORPUSCULAR HEMOGLOBIN 30.7 pg (27.0-33.0); MEAN CORPUSCULAR HGB CONC 33.2 g/dl (32.0-36.5); MEAN CORPUSCULAR VOLUME 92.5 fl (80.0-96.0); PLATELET COUNT, AUTOMATED 430 10^3/uL (150-450); RED BLOOD COUNT 3.35 10^6/uL (4.30-6.10); WHITE BLOOD COUNT 12.8 10^3/uL (4.0-10.0)
[2019-08-16 07:11] LABS: BLOOD UREA NITROGEN 20 MG/DL (7-18); CALCIUM LEVEL 8.6 MG/DL (8.5-10.1); CARBON DIOXIDE LEVEL 26 MEQ/L (21-32); CHLORIDE LEVEL 104 MEQ/L (98-107); CREATININE FOR GFR 1.07 MG/DL (0.70-1.30); GLOMERULAR FILTRATION RATE > 60.0 (>56); GLUCOSE, FASTING 121 MG/DL (70-100); MAGNESIUM LEVEL 1.8 MG/DL (1.8-2.4); POTASSIUM SERUM 3.5 MEQ/L (3.5-5.1); SODIUM LEVEL 136 MEQ/L (136-145)
[2019-08-16] MEDS: ALBUTEROL SULFATE 2.5 MG/0.5 ML INH NEB SOLN INH SCH ×4 (07:15→19:50)
[2019-08-16] MEDS: METHADONE 10 MG TAB (S0109) PO SCH (09:57)
[2019-08-16] MEDS: KCL 20MEQ IN 0.45NS 1000ML 1,000 ML IV SCH ×2 (09:57→17:09)
[2019-08-16] MEDS: OSELTAMIVIR PHOSPHATE 75 MG CAP (TAMIFLU) PO SCH ×2 (09:58→21:08)
[2019-08-16] MEDS: ASPIRIN 81 MG ENTERIC TAB PO SCH (09:58)
[2019-08-16] MEDS: ATORVASTATIN 20 MG TAB PO SCH (09:58)
[2019-08-16] MEDS: MULTIVITAMINS/MINERALS THERAP 1 TAB PO SCH (09:58)
[2019-08-16] MEDS: amLODIPine 10 MG TAB PO SCH (09:59)
[2019-08-16] MEDS: cefTRIAXone SOD 2 GM in D5W MINI-BAG PLUS 50 ML IV SCH (12:08)
--- NOTE | 2019-08-16 13:40 | IPN ---
DATE: 08/16/2019 Jose R is here with a pneumonia after influenza. He has a lot of somatic complaints of abdominal cramping and chest wall pain. He has a history of chronic opioid abuse and is now on methadone maintenance. He denies shortness of breath, fever, or chills. PHYSICAL EXAMINATION: Vital signs: Stable. Afebrile. Lungs: Clear. Heart: Regular rhythm. Abdomen is soft, nontender. No peripheral edema. Chest wall is tender to palpate on the left. IMPRESSION: 1. Post-viral pneumonia. Continue Rocephin and azithromycin. He already has his influenza treated with Tamiflu. This is day 2 of intravenous antibiotic. 2. Musculoskeletal complaints. I discussed this with him, I really cannot give him opioids because of his narcotic additions and methadone treatment and he had acute kidney injury on admission so I would be hesitant to use nonsteroidal anti-inflammatory drugs (NSAIDs). Heating pad and reassurance advised. 3. Crampy abdominal pains. Probably from the intravenous azithromycin which is prokinetic. Reassurance was provided. 4. Acute right kidney injury. Renal function is back to baseline. Avoid nonsteroidal anti-inflammatory drugs (NSAIDs), maintain proper hydration. 5. Hypokalemia. This is resolved with potassium containing IV fluids. IV fluids could probably be discontinued tomorrow. 6. Hyperlipidemia. Continue current dose of atorvastatin. I tried to call his , but there was no answer and she did not leave any identifying message so I left no clinical information on her voice mail.
[2019-08-16 14:00] VITALS: BP 128/71
[2019-08-16 22:00] VITALS: BP 148/77
[2019-08-17] MEDS: KCL 20MEQ IN 0.45NS 1000ML 1,000 ML IV SCH ×2 (03:01→12:10)
[2019-08-17] MEDS: ACETAMINOPHEN 500 MG TAB PO PRN ×3 (03:04→09:01)
[2019-08-17] MEDS: AZITHROMYCIN INJ 500 MG, VIAL MATE ADAPTER 1 EACH in D5W 250 ML IV SCH (03:47)
[2019-08-17 06:00] VITALS: BP 140/81
[2019-08-17 06:28] LABS: HEMOGLOBIN 10.4 g/dl (13.5-17.5); MEAN CORPUSCULAR HGB CONC 33.5 g/dl (32.0-36.5); MEAN CORPUSCULAR VOLUME 92.3 fl (80.0-96.0); PLATELET COUNT, AUTOMATED 436 10^3/uL (150-450); RED BLOOD COUNT 3.36 10^6/uL (4.30-6.10); WHITE BLOOD COUNT 11.7 10^3/uL (4.0-10.0)
[2019-08-17 06:45] LABS: BLOOD UREA NITROGEN 15 MG/DL (7-18); CALCIUM LEVEL 8.6 MG/DL (8.5-10.1); CARBON DIOXIDE LEVEL 26 MEQ/L (21-32); CHLORIDE LEVEL 106 MEQ/L (98-107); CREATININE FOR GFR 0.82 MG/DL (0.70-1.30); GLOMERULAR FILTRATION RATE > 60.0 (>56); GLUCOSE, FASTING 126 MG/DL (70-100); POTASSIUM SERUM 3.5 MEQ/L (3.5-5.1); SODIUM LEVEL 139 MEQ/L (136-145)
[2019-08-17] MEDS: ALBUTEROL SULFATE 2.5 MG/0.5 ML INH NEB SOLN INH SCH ×3 (07:35→19:43)
[2019-08-17] MEDS: amLODIPine 10 MG TAB PO SCH (09:00)
[2019-08-17] MEDS ORDERED: MAGNESIUM OXIDE 400 MG TAB (MAG-OX) PO ONE (09:00)
[2019-08-17] MEDS: ASPIRIN 81 MG ENTERIC TAB PO SCH (09:01)
[2019-08-17] MEDS: OSELTAMIVIR PHOSPHATE 75 MG CAP (TAMIFLU) PO SCH ×2 (09:02→20:04)
[2019-08-17] MEDS: ATORVASTATIN 20 MG TAB PO SCH (09:02)
[2019-08-17] MEDS: MULTIVITAMINS/MINERALS THERAP 1 TAB PO SCH (09:02)
[2019-08-17] MEDS: METHADONE 10 MG TAB (S0109) PO SCH (09:12)
[2019-08-17] MEDS: cefTRIAXone SOD 2 GM in D5W MINI-BAG PLUS 50 ML IV SCH (12:10)
[2019-08-17 14:00] VITALS: BP 138/72
[2019-08-17 14:20] LABS: BODY FLUID CULTURE Not indicated. (.); ORGANISM ID Not indicated. (.); SPECIMEN SOURCE Urine (.); URINE STREP PNEUMONIAE ANTIGEN Negative (Negative)
--- NOTE | 2019-08-17 14:29 | IPNPDOC ---
Text Note Date of Service The patient was seen on 08/17/19. NOTE Physical Examination General Exam: Alert, NAD EENT: PERRLA, EOMI, MMM Chest: CTAB at this time, breathing comfortably on room air Heart Exam: RRR, no mrg Abdomen Exam: Normal bowel sounds, NTND Extremity Exam: WWP, no LE edema Skin Exam: Nl turgor and temperature, no rashes Neuro Exam: Normal gait, was walking around his room when I arrived. Strength at 5/5 X4 ext, Cranial Nerves 3-12 NL Psych Exam: AOx3 Labs: Reviewed Assessment: 53 years old M with chronic hypertension, hyperlipidemia, anxiety, depression, polysubstance use disorder currently on methadone therapwho was admitted with pulmonary complaints and found to have influenza A infection with superimposed pneumococcal pneumonia who is doing well on ceftriaxone/azithro. Problems (1) CAP: sputum growing pneumococcal pneumoniae, 2/2 influenza A coinfection -CT shows bilateral pneumonia -Was on Azithromycin IV, ceftriaxone IV, will discontinue azithromycin at this time -Blood cultures remain negative (2) Influenza A -Tamiflu for 5 days (3) Chest pain -Typical chest pain. First troponin negative. EKG showed mild ST depression in the anterolateral leads. His pain can be attributed to pleuritis or pericarditis secondary to viral infection -multiple risk factors including smoking, hypertension, hyperlipidemia, age. Patient will benefit from stress test in the outpatient settings. TTE showed moderate pulmonary hypertension with normal EF and no WMA DVT ppx: Lovenox 40 QD VS,Fishbone, I+O VS, Fishbone, I+O Laboratory Tests 08/17/19 05:57 Vital Signs Date Time Temp Pulse Resp B/P (MAP) Pulse Ox O2 Delivery O2 Flow Rate FiO2 08/17/19 09:00 91 142/78 08/17/19 06:00 98.6 19 97 08/16/19 14:00 Room Air I&O- Last 24 Hours up to 6 AM 08/17/19 06:00 Intake Total 5225 ml Output Total 1020 ml Balance 4205 ml ZHENG CORTEZ MD Aug 17, 2019 14:29
[2019-08-17] MEDS: ENOXAPARIN 40 MG/0.4 ML SYRINGE (J1650) SC SCH (15:37)
[2019-08-17 22:00] VITALS: BP 139/76
[2019-08-18] MEDS: KCL 20MEQ IN 0.45NS 1000ML 1,000 ML IV SCH ×2 (00:22→09:00)
[2019-08-18] MEDS: ACETAMINOPHEN 500 MG TAB PO PRN (03:53)
[2019-08-18 06:00] VITALS: BP 131/78
[2019-08-18] MEDS: ALBUTEROL SULFATE 2.5 MG/0.5 ML INH NEB SOLN INH SCH (07:55)
[2019-08-18] MEDS ORDERED: ALB2.5NEB INH (08:32)
[2019-08-18] MEDS ORDERED: SULF1TAB93 PO (08:32)
[2019-08-18] MEDS ORDERED: ACET-683 PO (08:32)
[2019-08-18] MEDS ORDERED: LevoFLOXacin 750 MG TABLET PO SCH (09:00)
[2019-08-18] MEDS ORDERED: BACTRIM 160MG/800MG DS TAB PO SCH (09:00)
[2019-08-18] MEDS: ENOXAPARIN 40 MG/0.4 ML SYRINGE (J1650) SC SCH (09:00)
[2019-08-18] MEDS: OSELTAMIVIR PHOSPHATE 75 MG CAP (TAMIFLU) PO SCH (09:13)
[2019-08-18] MEDS: MULTIVITAMINS/MINERALS THERAP 1 TAB PO SCH (09:13)
[2019-08-18] MEDS: ATORVASTATIN 20 MG TAB PO SCH (09:13)
[2019-08-18 09:14] VITALS: BP 145/77
[2019-08-18] MEDS: amLODIPine 10 MG TAB PO SCH (09:14)
[2019-08-18] MEDS: ASPIRIN 81 MG ENTERIC TAB PO SCH (09:14)
[2019-08-18] MEDS: METHADONE 10 MG TAB (S0109) PO SCH (09:15)
[2019-08-18] MEDS ORDERED: ALBU8.5H IH (10:44)
--- NOTE | 2019-08-18 10:45 | DS.PDOC ---
Discharge Summary General Date of Admission Aug 15, 2019 at 01:35 Date of Discharge 08/18/2019 Attending Physician: ZHENG CORTEZ MD Discharge Summary PROCEDURES PERFORMED DURING STAY: None ADMITTING DIAGNOSES: 1. [Influenza A 2. CAP DISCHARGE DIAGNOSES: 1. Influenza A 2. Pneumococcus pneumoniae pneumonia 3. PSUD COMPLICATIONS/CHIEF COMPLAINT: Influenza A; Pneumonia. HISTORY OF PRESENT ILLNESS: 53 years old man with chronic hypertension, hyperlipidemia, anxiety, depression, polysubstance use disorder currently on methadone therapy, who presented to the hospital with weakness, increased shortness of breath and chest pain. HOSPITAL COURSE: He reported that 6 days ago he was tested for the flu and was found to be positive for influenza A infection. He was been having muscle ache, generalized weakness and a cough, and progressively developed 7 out of 10, intermittent, substernal chest pain that prompted his ED presentation. In the ED, he was found to have leukocytosis of 14.1 , creatinine 1.4, BNP 1600 and troponin was done and it was negative. CT chest showed Mild patchy ground-glass opacities bilaterally, diffuse centrilobular nodules bilaterally, consistent with pneumonia. He was started on empiric ceftriaxone/azithro for CAP and his sputum ultimately grew Pneumococcus pneumonia that was pansensitive. Due to high pill burden for q6H dosing and being on methadone and its QT prolonging effects, I am now switching him to BID bactrim for a total 7d treatment course for his pneumonia. He otherwise has clinically improved and is doing well, ambulating and breathing comfortably on room air. DISCHARGE MEDICATIONS: Please see below. ALLERGIES: Please see below. PHYSICAL EXAMINATION ON DISCHARGE: VITAL SIGNS: Please see below. General Exam: Alert, NAD EENT: PERRLA, EOMI, MMM Chest: CTAB at this time, breathing comfortably on room air Heart Exam: RRR, no mrg Abdomen Exam: Normal bowel sounds, NTND Extremity Exam: WWP, no LE edema Skin Exam: Nl turgor and temperature, no rashes Neuro Exam: Normal gait, was walking around his room when I arrived. Strength at 5/5 X4 ext, Cranial Nerves 3-12 NL Psych Exam: AOx3 LABORATORY DATA: Please see below. IMAGING: CTA 1. Negative for pulmonary embolism. 2. Mild patchy ground-glass opacities bilaterally. Diffuse centrilobular nodules bilaterally. Consistent with pneumonia. 3. Diffuse bronchial wall thickening and mucus plugging in the lower lobes bilaterally. Consistent with bronchitis. PROGNOSIS: Good ACTIVITY: As tolerated DIET: Regular DISCHARGE PLAN: Home with bactrim to complete course. DISPOSITION: Home DISCHARGE INSTRUCTIONS: 1. Please complete the course of antibiotics as prescribed and see your PCP within 7d of discharge. ITEMS TO FOLLOWUP ON ON OUTPATIENT: 1. Resolution of PNA DISCHARGE CONDITION: Stable TIME SPENT ON DISCHARGE: 43 minutes. Vital Signs/I&Os Vital Signs Date Time Temp Pulse Resp B/P (MAP) Pulse Ox O2 Delivery O2 Flow Rate FiO2 08/18/19 06:00 97.9 82 20 131/78 (95) 96 08/17/19 22:00 Room Air I&O- Last 24 Hours up to 6 AM 08/18/19 06:00 Intake Total 2470 ml Output Total 2300 ml Balance 170 ml Microbiology Microbiology 08/15/19 Blood Culture - Preliminary, Resulted No Growth after 72 hours. All specime... 08/15/19 Gram Stain - Final, Complete 08/15/19 Sputum Culture - Final, Complete Streptococcus Pneumoniae Yeast Like Organism 08/15/19 Blood Culture - Preliminary, Resulted No Growth after 72 hours. All specime... 08/15/19 Blood Culture - Preliminary, Resulted No Growth after 72 hours. All specime... Discharge Medications Scheduled Amlodipine Besylate (Amlodipine Besylate) 10 Mg Tablet, 10 MG PO DAILY, (Reported) Aspirin (Aspirin EC) 81 Mg Tablet.dr, 81 MG PO DAILY, (Reported) Atorvastatin Calcium (Atorvastatin Calcium) 80 Mg Tablet, 80 MG PO DAILY, (Reported) Methadone HCl (Methadone HCl) 10 Mg/1 Ml Oral.conc, 170 MG PO DAILY, (Reported) Multivitamins (Thera M Plus Tablet) 1 Each Tablet, 1 TAB PO DAILY, (Reported) Sulfamethoxazole/Trimethoprim (Sulfamethoxazole-Tmp Ds Tablet) 1 Each Tablet, 1 TAB PO BID Venlafaxine HCl (Venlafaxine HCl ER) 150 Mg Tab.er.24, 150 MG PO DAILY, (Reported) Scheduled PRN Acetaminophen (Acetaminophen) 500 Mg Tablet, 1,000 MG PO Q6HP PRN for PAIN / FEVER Albuterol Sulfate (Albuterol Sulfate Hfa) 8.5 Gm Hfa.aer.ad, 8.5 GM IH Q6HP PRN for SOB/COUGH Buspirone HCl (Buspirone HCl) 15 Mg Tablet, 15 MG PO BID PRN for ANXIETY, (Reported) Sildenafil Citrate (Viagra) 50 Mg Tablet, 50 MG PO DAILY PRN for ERECTILE DYSFUNCTION, (Reported) Allergies Coded Allergies: No Known Allergies (Verified , 08/14/19) ZHENG CORTEZ MD Aug 18, 2019 08:27
[2019-08-18] MEDS ORDERED: cefTRIAXone SOD 2 GM in D5W MINI-BAG PLUS 50 ML IV SCH (12:00)
== END 2019-08-18 12:29 | disposition home or self-care (01) | DRG 139 ==
LOC: M ED 20:23 → M ED INP 08-15 01:35 → ENRESERV 08-15 02:39 → M MSPAV 08-15 04:28
PROVIDERS: ADMIT Internal Medicine; ATTEND Internal Medicine
DX: J09.X1 Influenza due to identified novel influenza A virus with pneumonia (principal); J13 Pneumonia due to Streptococcus pneumoniae; N17.9 Acute kidney failure, unspecified; N18.3 Chronic kidney disease, stage 3 (moderate); I12.9 Hypertensive chronic kidney disease with stage 1 through stage 4 chronic kidney disease, or unspecified chronic kidney disease; E78.5 Hyperlipidemia, unspecified; F41.9 Anxiety disorder, unspecified; F32.9 Major depressive disorder, single episode, unspecified; Z79.82 Long term (current) use of aspirin; Z79.899 Other long term (current) drug therapy; F11.90 Opioid use, unspecified, uncomplicated; E87.6 Hypokalemia; R07.1 Chest pain on breathing

== ENCOUNTER → 2020-10-14 | Outpatient (CLI) | payer OTHER ==
[~2020-10-14] MED LIST changes: +ACET-683 PO; +ALB2.5NEB INH; +ALBU8.5H IH; -AMLO10TA5; +AMLO1TAB25; +AMLO1TAB25 PO; +ASPI-161 PO; +ATOR80TA59 PO; +BUSP15TA47 PO; +SILD50TA PO; +SULF1TAB93 PO; +VENL150T24 PO; +VITMTA PO
[2020-10-14 09:58] LABS: ALT/SGPT 23 U/L (12-78); BILIRUBIN,TOTAL 0.2 MG/DL (0.2-1.0); BLOOD UREA NITROGEN 30 MG/DL (7-18); CALCIUM LEVEL 8.9 MG/DL (8.5-10.1); CARBON DIOXIDE LEVEL 32 MEQ/L (21-32); CHLORIDE LEVEL 102 MEQ/L (98-107); CREATININE FOR GFR 1.41 MG/DL (0.70-1.30); GLOMERULAR FILTRATION RATE 55.6 (>56); GLUCOSE, FASTING 116 MG/DL (70-100); POTASSIUM SERUM 3.5 MEQ/L (3.5-5.1); SODIUM LEVEL 139 MEQ/L (136-145); TOTAL PROTEIN 7.2 GM/DL (6.4-8.2)
[2020-10-14 10:08] LABS: HEMATOCRIT 36.8 % (42.0-52.0); HEMOGLOBIN 12.2 g/dl (13.5-17.5); MEAN CORPUSCULAR HEMOGLOBIN 30.6 pg (27.0-33.0); MEAN CORPUSCULAR HGB CONC 33.2 g/dl (32.0-36.5); MEAN CORPUSCULAR VOLUME 92.2 fl (80.0-96.0); PLATELET COUNT, AUTOMATED 283 10^3/uL (150-450); RED BLOOD COUNT 3.99 10^6/uL (4.30-6.10); WHITE BLOOD COUNT 9.5 10^3/uL (4.0-10.0)
[2020-10-14 10:18] LABS: HEPATITIS B SURFACE ANTIGEN NEGATIVE (NEGATIVE)
[2020-10-14 10:46] LABS: HEPATITIS C VIRUS ABY INDEX < 0.0 INDEX (<0.8); HIV 1&2 SCREEN CENTAUR NEGATIVE (NEGATIVE)
--- NOTE | 2020-10-15 00:07 | ECGEPIP ---
[facility] Test Date: 2020-10-14 Pat Name: CHAPO DALE Department: Room: - Gender: Male Facetor: beau : 1965 Requested By: Ovidio Childs Order Number: [id number] Reading MD: Rich Ramirez Measurements Intervals [place] Rate: 71 P: 77 MA: 168 QRS: 46 QRSD: 88 T: 44 QT: 422 QTc: 458 Interpretive Statements Normal sinus rhythm Compared to prior tracings in the system on 08/14/19 22:46, ST/T abnormalities h have improved Electronically Signed on 10-15-2020 0:07:05 EDT by Rich Ramirez
== END ==
LOC: M LAB 08:43
PROVIDERS: ATTEND Family Medicine
DX: F11.20 Opioid dependence, uncomplicated (principal)

== ENCOUNTER → 2021-11-25 | Outpatient (CLI) | payer OTHER ==
[~2021-11-25] MED LIST changes: +BACTDSTA PO; -SULF1TAB93 PO
[2021-11-25 08:44] LABS: HEMATOCRIT 34.5 % (42.0-52.0); HEMOGLOBIN 11.2 g/dl (13.5-17.5); MEAN CORPUSCULAR HGB CONC 32.5 g/dl (32.0-36.5); MEAN CORPUSCULAR VOLUME 92.5 fl (80.0-96.0); PLATELET COUNT, AUTOMATED 318 10^3/uL (150-450); RED BLOOD COUNT 3.73 10^6/uL (4.30-6.10); WHITE BLOOD COUNT 8.3 10^3/uL (4.0-10.0)
[2021-11-25 09:16] LABS: ALT/SGPT 22 U/L (12-78); BILIRUBIN,TOTAL 0.2 MG/DL (0.2-1.0); BLOOD UREA NITROGEN 58 MG/DL (7-18); CALCIUM LEVEL 9.6 MG/DL (8.5-10.1); CARBON DIOXIDE LEVEL 25 MEQ/L (21-32); CHLORIDE LEVEL 106 MEQ/L (98-107); CREATININE FOR GFR 2.63 MG/DL (0.70-1.30); GLUCOSE, FASTING 93 MG/DL (70-100); SODIUM LEVEL 140 MEQ/L (136-145); TOTAL PROTEIN 7.5 GM/DL (6.4-8.2)
[2021-11-25 12:25] LABS: HEPATITIS B SURFACE ANTIGEN NEGATIVE (NEGATIVE)
[2021-11-25 12:54] LABS: HEPATITIS C VIRUS ABY INDEX 0.1 INDEX (<0.8); HIV 1&2 SCREEN CENTAUR NEGATIVE (NEGATIVE)
== END ==
LOC: M LAB 07:46
PROVIDERS: ATTEND Family Medicine
DX: F11.21 Opioid dependence, in remission (principal)

== ENCOUNTER → 2022-07-11 | Outpatient (REF) | payer OTHER ==
[2022-07-11 18:45] LABS: ALBUMIN 4.2 G/DL (3.2-5.2); ALKALINE PHOSPHATASE 115 U/L (46-116); ALT/SGPT 19 U/L (7.0-40); AST/SGOT 21 U/L (<34); BILIRUBIN,TOTAL < 0.2 MG/DL (0.3-1.2); BLOOD UREA NITROGEN 64 MG/DL (9-23); CALCIUM LEVEL 9.1 MG/DL (8.5-10.1); CARBON DIOXIDE LEVEL 24 MMOL/L (20-31); CHLORIDE LEVEL 103 MMOL/L (98-107); CHOLESTEROL LEVEL 178 MG/DL (<200); CHOLESTEROL RISK RATIO 4.26 (<5); CREATININE FOR GFR 2.48 MG/DL (0.70-1.30); GLOMERULAR FILTRATION RATE 28.7 (>56); GLUCOSE, FASTING 109 MG/DL (60-100); HDL CHOLESTEROL 41.7 MG/DL (>40); LDL CHOLESTEROL 99.7 MG/DL (<100); NON-HDL-C 136 MG/DL; SODIUM LEVEL 137 MMOL/L (136-145); TOTAL PROTEIN 7.2 G/DL (5.7-8.2); TRIGLYCERIDES LEVEL 183 MG/DL (<150)
[2022-07-11 18:56] LABS: BASO # 0.1 10^3/uL (0.0-0.2); BASO % 1.2 % (0.0-1.0); EOS # 0.1 10^3/uL (0.0-0.5); EOS % 1.9 % (0.0-3.0); HEMATOCRIT 32.7 % (42.0-52.0); HEMOGLOBIN 10.8 g/dl (13.5-17.5); LYMPH # 2.2 10^3/uL (1.5-5.0); LYMPH % 32.6 % (24.0-44.0); MEAN CORPUSCULAR HEMOGLOBIN 30.8 pg (27.0-33.0); MEAN CORPUSCULAR VOLUME 93.2 fl (80.0-96.0); MONO # 0.6 10^3/uL (0.0-0.8); NEUTROPHILS # 3.7 10^3/uL (1.5-8.5); PLATELET COUNT, AUTOMATED 313 10^3/uL (150-450); RED BLOOD COUNT 3.51 10^6/uL (4.30-6.10); WHITE BLOOD COUNT 6.8 10^3/uL (4.0-10.0)
== END ==
LOC: M LAB REF 16:53
PROVIDERS: ATTEND Pediatrics
DX: I10 Essential (primary) hypertension (principal); E78.5 Hyperlipidemia, unspecified

== ENCOUNTER 2022-07-28 10:35 | Emergency (ER) | payer OTHER ==
[~2022-07-28] VITALS: Ht 182.9 cm; Wt 89.6 kg
[2022-07-28 13:00] LABS: BASO # 0.1 10^3/uL (0.0-0.2); BASO % 0.6 % (0.0-1.0); EOS # 0.1 10^3/uL (0.0-0.5); EOS % 1.2 % (0.0-3.0); HEMATOCRIT 32.7 % (42.0-52.0); HEMOGLOBIN 10.6 g/dl (13.5-17.5); LYMPH # 2.1 10^3/uL (1.5-5.0); LYMPH % 25.4 % (24.0-44.0); MEAN CORPUSCULAR HEMOGLOBIN 30.5 pg (27.0-33.0); MEAN CORPUSCULAR HGB CONC 32.4 g/dl (32.0-36.5); MEAN CORPUSCULAR VOLUME 94.2 fl (80.0-96.0); MONO # 0.5 10^3/uL (0.0-0.8); MONO % 5.7 % (2.0-8.0); NEUTROPHILS # 5.4 10^3/uL (1.5-8.5); PLATELET COUNT, AUTOMATED 307 10^3/uL (150-450); RED BLOOD COUNT 3.47 10^6/uL (4.30-6.10); WHITE BLOOD COUNT 8.1 10^3/uL (4.0-10.0)
[2022-07-28 13:23] LABS: CALCIUM LEVEL 9.5 MG/DL (8.5-10.1); CK-MB VALUE MASS 1.5 NG/ML (<3.6); CREATININE FOR GFR 2.62 MG/DL (0.70-1.30); MB/CK RELATIVE INDEX 1.45 (< OR =4); POTASSIUM SERUM 5.4 MMOL/L (3.5-5.1)
[2022-07-28 14:12] LABS: CK-MB VALUE MASS 1.3 NG/ML (<3.6)
[2022-07-28 14:14] LABS: MB/CK RELATIVE INDEX 1.27 (< OR =4)
[2022-07-28] MEDS ORDERED: ACETAMINOPHEN 500 MG TAB PO ONE (16:10)
[2022-07-28 17:16] LABS: CK-MB VALUE MASS 1.3 NG/ML (<3.6)
[2022-07-28 17:17] LABS: MB/CK RELATIVE INDEX 1.3 (< OR =4)
[2022-07-28] MEDS ORDERED: MORPHINE 4 MG/ML 1ML VIAL IV ONE (18:15)
[2022-07-28] MEDS ORDERED: diazePAM 10MG/2ML SYRINGE IV ONE (18:20)
[2022-07-28] MEDS ORDERED: predniSONE 20 MG TAB PO ONE (20:20)
[2022-07-28] MEDS ORDERED: MEDR4PAK PO (20:45)
[2022-07-28] MEDS ORDERED: LIDO5DIS41 TOP (20:54)
[2022-07-28] MEDS ORDERED: LIDOCAINE 5% (LIDODERM) PATCH TD ONE (20:55)
[2022-07-28] MEDS ORDERED: ASPIRIN 81MG CHEW TABLET PO ONE (20:55)
[2022-07-28 21:11] VITALS: BP 180/85
== END 2022-07-28 21:14 | disposition home or self-care (01) ==
LOC: M ED 10:35
DX: M54.12 Radiculopathy, cervical region (principal); M50.20 Other cervical disc displacement, unspecified cervical region; I63.81 Other cerebral infarction due to occlusion or stenosis of small artery; G95.20 Unspecified cord compression; N18.9 Chronic kidney disease, unspecified; I10 Essential (primary) hypertension; E78.5 Hyperlipidemia, unspecified; K21.9 Gastro-esophageal reflux disease without esophagitis; F41.9 Anxiety disorder, unspecified; M54.50 Low back pain, unspecified; F32.A Depression, unspecified; F19.10 Other psychoactive substance abuse, uncomplicated; F17.200 Nicotine dependence, unspecified, uncomplicated; Z86.73 Personal history of transient ischemic attack (TIA), and cerebral infarction without residual deficits; Z79.52 Long term (current) use of systemic steroids; Z79.02 Long term (current) use of antithrombotics/antiplatelets; Z79.810 Long term (current) use of selective estrogen receptor modulators (SERMs); Z79.899 Other long term (current) drug therapy
CPT/HCPCS: 70450; 70551; 71046; 72125; 72141; 73030; 80048; 82550; 82553; 85025; 93005; 96374; 99284; J7512

== ENCOUNTER → 2023-05-05 | Outpatient (REF) | payer OTHER ==
[~2023-05-05] MED LIST changes: +LIDO5DIS41 TOP; +MEDR4PAK PO
[2023-05-05 18:22] LABS: BASO # 0.1 10^3/uL (0.0-0.2); BASO % 0.8 % (0.0-1.0); EOS # 0.3 10^3/uL (0.0-0.5); EOS % 4.1 % (0.0-3.0); HEMATOCRIT 35.6 % (42.0-52.0); HEMOGLOBIN 11.7 g/dl (13.5-17.5); LYMPH # 3.7 10^3/uL (1.5-5.0); LYMPH % 44.7 % (24.0-44.0); MEAN CORPUSCULAR HEMOGLOBIN 30.8 pg (27.0-33.0); MEAN CORPUSCULAR HGB CONC 32.9 g/dl (32.0-36.5); MEAN CORPUSCULAR VOLUME 93.7 fl (80.0-96.0); MONO # 0.7 10^3/uL (0.0-0.8); MONO % 8.7 % (2.0-8.0); NEUTROPHILS # 3.4 10^3/uL (1.5-8.5); NEUTROPHILS % 41.5 % (36.0-66.0); PLATELET COUNT, AUTOMATED 301 10^3/uL (150-450); WHITE BLOOD COUNT 8.3 10^3/uL (4.0-10.0)
[2023-05-05 18:40] LABS: ALBUMIN 4.5 G/DL (3.2-5.2); CALCIUM LEVEL 9.6 MG/DL (8.5-10.1); CHOLESTEROL RISK RATIO 4.06 (<5); CREATININE FOR GFR 2.35 MG/DL (0.70-1.30); GLOMERULAR FILTRATION RATE 30.5 (>56); HDL CHOLESTEROL 44.8 MG/DL (>40); LDL CHOLESTEROL 112.4 MG/DL (<100); NON-HDL-C 137.2 MG/DL; PHOSPHORUS LEVEL 3.8 MG/DL (2.5-4.9); POTASSIUM SERUM 4.3 MMOL/L (3.5-5.1); THYROID STIMULATING HORMONE 2.204 uIU/ML (0.55-4.78); TOTAL 25(OH) VITAMIN D 42.1 NG/ML (20.0-100.0)
== END ==
LOC: M LAB REF 16:35
PROVIDERS: ATTEND Pediatrics
DX: E78.5 Hyperlipidemia, unspecified (principal); R35.0 Frequency of micturition; N18.4 Chronic kidney disease, stage 4 (severe)

== ENCOUNTER → 2023-09-11 | Outpatient (REF) | payer MEDICAID, OTHER ==
[~2023-09-11] MED LIST changes: -ASPI-161 PO; +ASPI-615 PO
[2023-09-11 18:39] LABS: BASO # 0.1 10^3/uL (0.0-0.2); BASO % 1.1 % (0.0-1.0); EOS # 0.2 10^3/uL (0.0-0.5); EOS % 3.1 % (0.0-3.0); HEMATOCRIT 32.3 % (42.0-52.0); HEMOGLOBIN 10.6 g/dl (13.5-17.5); LYMPH # 2.4 10^3/uL (1.5-5.0); LYMPH % 32.1 % (24.0-44.0); MEAN CORPUSCULAR HEMOGLOBIN 30.8 pg (27.0-33.0); MEAN CORPUSCULAR HGB CONC 32.8 g/dl (32.0-36.5); MEAN CORPUSCULAR VOLUME 93.9 fl (80.0-96.0); MONO # 0.7 10^3/uL (0.0-0.8); MONO % 9.4 % (2.0-8.0); NEUTROPHILS % 53.9 % (36.0-66.0); PLATELET COUNT, AUTOMATED 267 10^3/uL (150-450); RED BLOOD COUNT 3.44 10^6/uL (4.30-6.10); WHITE BLOOD COUNT 7.5 10^3/uL (4.0-10.0)
[2023-09-11 19:05] LABS: CALCIUM LEVEL 8.9 MG/DL (8.5-10.1); CHOLESTEROL RISK RATIO 3.81 (<5); CREATININE FOR GFR 2.21 MG/DL (0.70-1.30); GLOMERULAR FILTRATION RATE 32.7 (>56); HDL CHOLESTEROL 42.5 MG/DL (>40); LDL CHOLESTEROL 95.3 MG/DL (<100); NON-HDL-C 119.5 MG/DL; PHOSPHORUS LEVEL 4.5 MG/DL (2.5-4.9)
[2023-09-11 19:07] LABS: TOTAL 25(OH) VITAMIN D 39.2 NG/ML (20.0-100.0)
== END ==
LOC: M LAB REF 18:15
PROVIDERS: ATTEND Pediatrics
DX: N18.4 Chronic kidney disease, stage 4 (severe) (principal); E78.5 Hyperlipidemia, unspecified

== ENCOUNTER 2024-10-02 07:13 | Emergency (ER) | payer OTHER ==
[~2024-10-02] VITALS: Ht 177.8 cm; Wt 94.1 kg
[2024-10-02 08:42] LABS: APPEARANCE, URINE CLEAR (CLEAR); BACTERIA, URINE AUTO NEGATIVE (NEGATIVE); BILIRUBIN, URINE AUTO NEGATIVE (NEGATIVE); BLOOD, URINE BLOOD 1+ (NEGATIVE); COLOR, URINE YELLOW (YELLOW); GLUCOSE, URINE (UA) AUTO 2+ mg/dL (NEGATIVE); KETONE, URINE AUTO NEGATIVE (NEGATIVE); LEUKOCYTE ESTERASE, URINE AUTO NEGATIVE (NEGATIVE); NITRITE, URINE AUTO NEGATIVE (NEGATIVE); PROTEIN, URINE AUTO 3+ mg/dL (NEGATIVE); RBC, URINE AUTO 0 /HPF (0-3); SPECIFIC GRAVITY URINE AUTO 1.014 (1.002-1.035); SQUAMOUS EPITHELIAL CELL UR AU 0 /HPF (0-6); UROBILINOGEN, URINE AUTO 0.2 mg/dL (0.0-2.0); WBC, URINE AUTO 1 /HPF (0-3)
[2024-10-02 08:45] LABS: BASO # 0.1 10^3/uL (0.0-0.2); BASO % 1.1 % (0.0-1.0); EOS # 0.2 10^3/uL (0.0-0.5); HEMATOCRIT 34.4 % (42.0-52.0); HEMOGLOBIN 11.5 g/dl (13.5-17.5); LYMPH # 2.7 10^3/uL (1.5-5.0); MEAN CORPUSCULAR HEMOGLOBIN 30.9 pg (27.0-33.0); MEAN CORPUSCULAR HGB CONC 33.4 g/dl (32.0-36.5); MEAN CORPUSCULAR VOLUME 92.5 fl (80.0-96.0); MONO # 0.7 10^3/uL (0.0-0.8); MONO % 9.1 % (2.0-8.0); NEUTROPHILS # 3.7 10^3/uL (1.5-8.5); NEUTROPHILS % 49.5 % (36.0-66.0); PLATELET COUNT, AUTOMATED 252 10^3/uL (150-450); RED BLOOD COUNT 3.72 10^6/uL (4.30-6.10); WHITE BLOOD COUNT 7.4 10^3/uL (4.0-10.0)
[2024-10-02 09:14] LABS: ALKALINE PHOSPHATASE 138 U/L (40-129); ALT/SGPT 26 U/L (7.0-40); AST/SGOT 20 U/L (<34); BILIRUBIN,DIRECT < 0.1 MG/DL (<0.4); BILIRUBIN,TOTAL 0.2 MG/DL (0.3-1.2); BLOOD UREA NITROGEN 61 MG/DL (9-23); CALCIUM LEVEL 9.5 MG/DL (8.5-10.1); CARBON DIOXIDE LEVEL 27 MMOL/L (20-31); CHLORIDE LEVEL 105 MMOL/L (98-107); CREATININE FOR GFR 2.63 MG/DL (0.70-1.30); GLOMERULAR FILTRATION RATE 26.7 (>56); GLUCOSE, FASTING 109 MG/DL (60-100); POTASSIUM SERUM 4.4 MMOL/L (3.5-5.1); SODIUM LEVEL 140 MMOL/L (136-145); TOTAL PROTEIN 7.6 G/DL (5.7-8.2)
[2024-10-02] MEDS ORDERED: VENTAER INH (10:48)
[2024-10-02] MEDS ORDERED: HOME MED LIST COMPLETE! XX SCH (11:00)
[2024-10-02] MEDS ORDERED: AMLO1TAB24 PO (11:27)
[2024-10-02 11:28] VITALS: BP 167/101
[2024-10-02] MEDS: amLODIPine 5 MG TAB PO ONE (11:28)
[2024-10-02 11:30] VITALS: BP 175/106; TEMP 98.5; O2SAT 99
== END 2024-10-02 11:39 | disposition home or self-care (01) ==
LOC: M ED 07:13
DX: I10 Essential (primary) hypertension (principal); N18.4 Chronic kidney disease, stage 4 (severe); E78.5 Hyperlipidemia, unspecified; F17.200 Nicotine dependence, unspecified, uncomplicated; Z79.52 Long term (current) use of systemic steroids; Z79.82 Long term (current) use of aspirin; Z79.02 Long term (current) use of antithrombotics/antiplatelets; Z79.899 Other long term (current) drug therapy

== ENCOUNTER → 2024-11-18 | Outpatient (CLI) | payer OTHER ==
[~2024-11-18] MED LIST changes: +AMLO1TAB24 PO; +LIDO1ADH93 TOP; -LIDO5DIS41 TOP; +VENTAER INH
[2024-11-18 09:08] LABS: HEMATOCRIT 34.1 % (42.0-52.0); HEMOGLOBIN 11.1 g/dl (13.5-17.5); MEAN CORPUSCULAR HEMOGLOBIN 30.4 pg (27.0-33.0); MEAN CORPUSCULAR HGB CONC 32.6 g/dl (32.0-36.5); MEAN CORPUSCULAR VOLUME 93.4 fl (80.0-96.0); PLATELET COUNT, AUTOMATED 247 10^3/uL (150-450); RED BLOOD COUNT 3.65 10^6/uL (4.30-6.10); WHITE BLOOD COUNT 8.2 10^3/uL (4.0-10.0)
[2024-11-18 09:42] LABS: ALBUMIN 4.1 G/DL (3.2-5.2); ALKALINE PHOSPHATASE 137 U/L (40-129); ALT/SGPT 24 U/L (7.0-40); AST/SGOT 19 U/L (<34); BILIRUBIN,TOTAL 0.2 MG/DL (0.3-1.2); BLOOD UREA NITROGEN 43 MG/DL (9-23); CALCIUM LEVEL 9.5 MG/DL (8.5-10.1); CARBON DIOXIDE LEVEL 26 MMOL/L (20-31); CHLORIDE LEVEL 103 MMOL/L (98-107); CREATININE FOR GFR 2.45 MG/DL (0.70-1.30); GLOMERULAR FILTRATION RATE 29.6 (>56); GLUCOSE, FASTING 104 MG/DL (60-100); POTASSIUM SERUM 4.1 MMOL/L (3.5-5.1); SODIUM LEVEL 140 MMOL/L (136-145); TOTAL PROTEIN 7.4 G/DL (5.7-8.2)
[2024-11-18 10:02] LABS: HEPATITIS B SURFACE ANTIGEN NEGATIVE (NEGATIVE)
[2024-11-18 10:15] LABS: HIV 1&2 SCREEN NEGATIVE (NEGATIVE)
[2024-11-18 10:23] LABS: HEPATITIS C VIRUS ABY INDEX 0.07 INDEX (<0.8)
[2024-11-18 10:39] LABS: GC DNA AMPLIFICATION NEGATIVE (NEGATIVE)
== END ==
LOC: M LAB 08:03
PROVIDERS: ATTEND Family Medicine
DX: F11.20 Opioid dependence, uncomplicated (principal)

== ENCOUNTER → 2025-04-23 | Outpatient (REF) | payer OTHER, MEDICAID ==
[~2025-04-23] MED LIST changes: -IBUP-1022 PO; +IBUP600T42 PO
[2025-04-23 14:26] LABS: BASO # 0.1 10^3/uL (0.0-0.2); BASO % 1.4 % (0.0-1.0); EOS # 0.2 10^3/uL (0.0-0.5); EOS % 2.7 % (0.0-3.0); LYMPH # 2.4 10^3/uL (1.5-5.0); LYMPH % 34.4 % (24.0-44.0); MONO # 0.6 10^3/uL (0.0-0.8); MONO % 8.3 % (2.0-8.0); NEUTROPHILS # 3.7 10^3/uL (1.5-8.5); NEUTROPHILS % 52.9 % (36.0-66.0); PLATELET COUNT, AUTOMATED 279 10^3/uL (150-450)
[2025-04-23 14:39] LABS: ALT/SGPT 21.0 U/L (7.0-40); AST/SGOT 18.0 U/L (<34); CALCIUM LEVEL 9.9 MG/DL (8.3-10.6); CARBON DIOXIDE LEVEL 25.0 MMOL/L (20-31); CHLORIDE LEVEL 102.0 MMOL/L (98-107); CHOLESTEROL LEVEL 303.0 MG/DL (<200); CHOLESTEROL RISK RATIO 7.31 (<5); CREATININE FOR GFR 2.57 MG/DL (0.70-1.30); GLOMERULAR FILTRATION RATE 27.8 (>49); LDL CHOLESTEROL 207.8 MG/DL (<100); NON-HDL-C 261.6 MG/DL; POTASSIUM SERUM 4.3 MMOL/L (3.5-5.1); SODIUM LEVEL 140.0 MMOL/L (136-145); TRIGLYCERIDES LEVEL 269.0 MG/DL (<150)
[2025-04-23 14:40] LABS: CPK CREATINE PHOSPHOKINASE 88.0 U/L (46-171)
[2025-04-23 16:51] LABS: CREATININE, URINE 83.7 MG/DL
[2025-04-23 17:37] LABS: MALB URINE SIEMENS 1139.0 MG/L; MAU/CREAT RATIO 1360.8 MCG/MG (0.0-30.0)
== END ==
LOC: M LAB REF 12:22
PROVIDERS: ATTEND Pediatrics
DX: I10 Essential (primary) hypertension (principal); E78.5 Hyperlipidemia, unspecified; R53.81 Other malaise; M79.10 Myalgia, unspecified site